=== PATIENT | female | born 1950 | race Caucasian/White ===

== ENCOUNTER 2020-11-26 09:56 | Emergency (ER) | payer OTHER, SELFPAY ==
--- NOTE | ~2020-11-26 | XR_ITS ---
EXAMINATION: XR knee RT min 4V DATE: 11/26/2020 10:39 INDICATION: Anterior right knee pain. TECHNIQUE: 5 views of right knee were obtained. COMPARISON: None. FINDINGS: Bone alignment is normal. No fracture. There is mild tricompartmental osteoarthritis charac terized by tiny marginal osteophytes. There is chondrocalcinosis of the [place]. No knee joint effusi on. IMPRESSION: 1. Mild right knee osteoarthritis. Reviewed, dictated and finalized at location A.
[2020-11-26 10:04] VITALS: BP 162/88; PULSE 98; RESP 16; TEMP 36.6; O2SAT 98
--- NOTE | 2020-11-26 10:46 | ED.LOWEXIN ---
HPI - Extremity Injury (Lower) General Chief Complaint: Extremity Problem,Nontraumatic Stated Complaint: painful right knee Time Seen by Provider: 11/26/20 10:25 Source: patient, RN notes reviewed and old records reviewed Mode of arrival: ambulatory Limitations: no limitations History of Present Illness HPI Narrative: 70 year old female who presents to [facility] care with complaints of right knee pain for the past one week duration. Patient states that she was doing some balancing and strengthening exercises and pain to right knee has progressively increased in intensity since then to the anterior aspect of her right knee. Patient states that she does have history of osteopenia and has had some stress fractures in her feet in the past. Patient states that pain increases with bending and with ambulation, has used ice compresses to her right knee and also resting her knee.Patient does have some swelling present to anterior aspect of her right knee, denies any fall onto knee. MD complaint: knee injury Onset (ago): week(s) (1) Related Data Home Medications Medication Instructions Recorded Confirmed Cortisporin 11/26/20 aspirin [Adult Low Dose Aspirin] 81 mg PO DAILY 11/26/20 11/26/20 atorvastatin 40 mg PO HS 11/26/20 11/26/20 calcitonin (salmon) 1 spray INTRANASAL (ALT) DAILY 11/26/20 11/26/20 clopidogrel 75 mg PO DAILY 11/26/20 11/26/20 furosemide [Lasix] 40 mg PO DAILY 11/26/20 11/26/20 levothyroxine 75 mcg PO DAILY 11/26/20 11/26/20 omega [id number] oil [Fish Oil] cap PO 11/26/20 pantoprazole 40 mg PO QAM 11/26/20 11/26/20 polyethylene glycol 3350 [Miralax] 17 g PO DAILY 11/26/20 11/26/20 potassium chloride 20 meq PO DAILY 11/26/20 11/26/20 ranitidine HCl 11/26/20 triamterene-hydrochlorothiazid 1 tablet PO QAM 11/26/20 11/26/20 umeclidinium-vilanterol [Anoro 1 inh INHALATION DAILY 11/26/20 11/26/20 Ellipta] Allergies Allergy/AdvReac Type Severity Reaction Status Date / Time pseudoephedrine Allergy Unknown Unknown Verified 11/26/20 10:20 acetaminophen [From Percocet] AdvReac Nervousness Verified 11/26/20 10:20 aspirin [From Percodan] AdvReac Nervousness Verified 11/26/20 10:20 oxycodone [From Percocet] AdvReac Nervousness Verified 11/26/20 10:20 prochlorperazine AdvReac Nervousness Verified 11/26/20 10:20 [From Compazine] Review of Systems Review of Systems: CONSTITUTIONAL: Denies fever, chills, or sweats. EYES: Denies visual changes, redness, or discharge. ENT: Denies rhinorrhea, congestion, sore throat, or otalgia. CARDIOVASCULAR: Denies chest pain, palpitations, or edema. RESPIRATORY: Denies cough or dyspnea. GASTROINTESTINAL: Denies abdominal pain, nausea, vomiting, or diarrhea. GENITOURINARY: Denies dysuria or hematuria. SKIN: Denies rash or itching. MUSCULOSKELETAL: Denies back pain,positive for pain to anterior aspect of her right knee with some edema, or myalgia. NEUROLOGIC: Denies headache, numbness, or weakness. PSYCHIATRIC: Denies anxiety or depression. All systems reviewed & are unremarkable except as noted in HPI and below PMFSH Past Medical History Medical History (Updated 11/30/20 @ 14:38 by Peyton Negron NP) Arthritis COVID-05 MARCH 2020 was hospitalized has also had COVID vaccinations Diet-controlled diabetes mellitus Hard of hearing Hypertension Hypothyroidism Meniere disease Osteopenia Overactive bladder Pedal edema Surgical History Surgical History (Updated 11/30/20 @ 14:25 by Peyton Negron NP) History of pneumonectomy wedge resection right lung cancer 2019 Hx of appendectomy Hx of cholecystectomy Hx of mastoidectomy Family History Family History (Updated 11/30/20 @ 14:29 by Peyton Negron NP) Father Family history of arthritis Family history of congestive heart failure Mother Family history of arthritis Family history of congestive heart failure Other Acute myocardial infarction FH: Parkinson's disease History of blood clots
== END 2020-11-26 11:12 | disposition home or self-care (01) ==
PROVIDERS: Emergency Provider Registered Nurse; PCP Family Medicine
DX: M17.11 Unilateral primary osteoarthritis, right knee (principal); Z87.891 Personal history of nicotine dependence; Z86.16 Personal history of COVID-19; E11.9 Type 2 diabetes mellitus without complications; I10 Essential (primary) hypertension; E03.9 Hypothyroidism, unspecified; M81.0 Age-related osteoporosis without current pathological fracture; H81.09 Meniere's disease, unspecified ear; Z85.118 Personal history of other malignant neoplasm of bronchus and lung
CPT/HCPCS: 73564; 99203; G0463